=== PATIENT | female | born 1950 | race Caucasian/White ===

== ENCOUNTER 2018-02-20 07:44 | Day surgery (SDC) | payer MEDICARE, BC ==
[~2018-02-20] VITALS: Ht 154.9 cm; Wt 83.2 kg
--- NOTE | ~2018-02-20 | OP ---
PATIENT NAME: ARTHUR LEE MEDICAL RECORD: [id number] :52 LOCATION:[facility] ADMISSION DATE: SURGEON: TAMMY NIELSEN DO DATE OF OPERATION: 02/20/2018 PROCEDURE: Colonoscopy with polypectomy. INDICATIONS FOR PROCEDURE: History of colon polyps, constipation, lower abdominal pain, nausea. SCOPE: Olympus video pediatric colonoscope. MEDICATIONS: Propofol 530 mg IV per anesthesia. WITHDRAWAL TIME: 8 minutes. ESTIMATED BLOOD LOSS: Minimal. COMPLICATIONS: None. FINDINGS: Informed consent was given. The patient was made comfortable with the above medication. After reaching an adequate level of sedation by slow IV push, the patient was placed on her left side. A digital rectal examination was performed and was normal. The endoscope was then advanced under direct visualization through the rectum to the cecum, confirmed by the presence of the appendiceal orifice and ileocecal valve. The endoscope was slowly withdrawn and mucosa was carefully examined. The prep quality was good. There were 3 polyps visualized on today's examination. All were benign-appearing and sessile and ranged in size from 3-5 mm in diameter. One was located in the ascending colon, one was located in the descending colon, and the last was located in the sigmoid colon. All were removed using hot forceps in 1 piece and completely retrieved. There was evidence of mild diverticulosis of the sigmoid colon without diverticulitis. Retroflexion was performed in the rectum. There were grade I internal hemorrhoids. There was no active bleeding visualized. The endoscope was then withdrawn from the patient. The patient tolerated the procedure well and there were no complications. IMPRESSION: 1. Three polyps as described above, removed using hot forceps. 2. Mild diverticulosis of the sigmoid colon. 3. Grade I internal hemorrhoids without bleeding. PLAN AND RECOMMENDATIONS: 1. Discharge home when recovery parameters are met. 2. Follow up biopsy specimen results. 3. High fiber diet. 4. Continue current medications. 5. Recall colonoscopy in 2-3 years for continued surveillance of a history of polyps. 6. The patient states that her symptoms of lower abdominal pain and constipation have resolved at this time. If her symptoms show worsen or return, she will be instructed to notify the GI clinic. TRANSINT:[id number] Voice Confirmation ID: [id number] DOCUMENT ID: [id number] OPERATIVE REPORT [id number] ARTHUR LEETAMMY MALAGON DO at 1531 CC: [id number] DICTATION DATE: 02/20/18 1042 [employer] INSTRUCTOR: 02/20/18 1302 [facility] 02/20/18 [id number] [place] [id number]
[2018-02-20 08:01] LABS: HEMATOCRIT 40.1 % (36.0-48.0); HEMOGLOBIN 13.4 g/dL (12-16); MCHC 33.4 g/dL (31.0-37.0); MCV 89.7 fL (80.0-100.0); MEAN PLATELET VOLUME 10.4 fL (7.4-10.4); RBC 4.47 10x6/uL (4.00-5.40); RDW 14.7 % (11.5-14.5); WBC 6.5 10x3/uL (4.8-10.8)
[2018-02-20] MEDS ORDERED: LOVENOX80 MG/0.8 (08:18)
[2018-02-20 08:19] LABS: INR 1.11 (0.85-1.17); PROTIME 13.9 SECONDS (11.6-15.0)
[2018-02-20] MEDS ORDERED: ROXICODONE15 MG (08:19)
[2018-02-20] MEDS ORDERED: LEXAPRO10 MG (08:19)
[2018-02-20] MEDS ORDERED: OXYCODONE HCL E20 MG (08:19)
[2018-02-20] MEDS ORDERED: PROAIR HFA AER (08:20)
[2018-02-20] MEDS ORDERED: ALDACTONE25 MG (08:20)
[2018-02-20] MEDS ORDERED: LASIX80 MG (08:20)
[2018-02-20] MEDS ORDERED: SINGULAIR10 MG (08:21)
[2018-02-20] MEDS ORDERED: ZANTAC300 MG (08:21)
[2018-02-20] MEDS ORDERED: LIPITOR80 MG (08:21)
[2018-02-20] MEDS ORDERED: ROBAXIN-750750 MG (08:22)
[2018-02-20] MEDS ORDERED: VOLTAREN100 GM (08:22)
[2018-02-20] MEDS ORDERED: ZETIA10 MG (08:22)
[2018-02-20] MEDS ORDERED: SYNTHROID75 MCG (08:23)
[2018-02-20] MEDS ORDERED: PREDNISONE20 MG (08:23)
[2018-02-20] MEDS ORDERED: TEMAZEPAM30 MG (08:23)
[2018-02-20] MEDS ORDERED: PROZAC40 MG (08:24)
[2018-02-20] MEDS ORDERED: COLCRYS0.6 MG (08:24)
[2018-02-20] MEDS ORDERED: TENORMIN25 MG (08:24)
[2018-02-20] MEDS ORDERED: NITROQUICK0.4 MG (08:25)
[2018-02-20] MEDS ORDERED: ULORIC80 MG (08:25)
[2018-02-20] MEDS ORDERED: RANEXA500 MG (08:25)
[2018-02-20] MEDS ORDERED: GLUCOPHAGE500 MG (08:26)
[2018-02-20] MEDS ORDERED: LISINOPRIL2.5 MG (08:26)
[2018-02-20] MEDS ORDERED: JANTOVEN5 MG (08:26)
[2018-02-20] MEDS ORDERED: JANTOVEN7.5 MG (08:26)
[2018-02-20] MEDS ORDERED: ISOSORBIDE MONO30 M1 (08:27)
[2018-02-20] MEDS ORDERED: K-DUR20 MEQ (08:27)
[2018-02-20] MEDS ORDERED: GLIMEPIRIDE1 MG (08:27)
[2018-02-20] MEDS ORDERED: SPIRIVA RESPIMAT4 G1 (08:28)
[2018-02-20] MEDS ORDERED: OMEPRAZOLE40 MG (08:28)
[2018-02-20] MEDS ORDERED: ADVAIR DISKU (08:28)
[2018-02-20 08:30] VITALS: BP 102/55; Ht 154.9 cm; Wt 83.2 kg
[2018-02-20 08:32] LABS: ANION GAP 14.5 mmol/L (8-16); CALCIUM 9.1 mg/dL (8.5-10.1); CARBON DIOXIDE 29.9 mmol/L (21.0-32.0); CREATININE - SERUM 1.9 mg/dL (0.6-1.3); POTASSIUM - SERUM 3.4 mmol/L (3.5-5.1)
== END 2018-02-20 11:41 | disposition home or self-care (01) ==
LOC: D.OPS 07:44
PROVIDERS: Anesthesiology
DX: D12.2 Benign neoplasm of ascending colon (principal); D12.5 Benign neoplasm of sigmoid colon; K63.5 Polyp of colon; K57.30 Diverticulosis of large intestine without perforation or abscess without bleeding; K64.0 First degree hemorrhoids; K59.00 Constipation, unspecified; Z01.812 Encounter for preprocedural laboratory examination